=== PATIENT | female | born 1940 | race Caucasian/White ===

== ENCOUNTER 2017-01-11 10:25 | Emergency (ER) | payer MEDICARE, OTHER ==
[2016-08-18 13:11] VITALS: BMI 21.5
[~2017-01-11 10:25] MED LIST: ACETAMINOPHEN500 M1 PO; ATENOLOL25 MG NG; CEFTIN500 MG PO; COMPAZINE10 MG PO; GAVISCON E1 TAB.CHEW PO; HYDROCODON-ACE1 EAC7 PO; LOPERAMIDE HCL2 MG PO; NORCO 10/325 TA1 TA1 PO; NORVASC5 MG PO; PROTONIX40 MG PO; PROZAC20 MG PO; REMERON15 MG PO; TENORMIN50 MG; VIT D-3; VITAMIN B-1000 MCG/M IM; XANAX1 MG PO; ZOLOFT50 MG PO
[2017-01-11 11:34] LABS: BASOPHILS 0.1 % (0.0-2.0); EOSINOPHILS 0.3 % (0-7); HEMATOCRIT 39.5 % (36.0-48.0); HEMOGLOBIN 12.4 g/dL (12-16); IMMATURE GRANULOCYTES 0.3 % (0-5); LYMPHOCYTES 12.9 % (15-50); MCH 31.2 pg (26.0-34.0); MCHC 31.4 g/dL (31.0-37.0); MCV 99.5 fL (80.0-100.0); MEAN PLATELET VOLUME 11.1 fL (7.4-10.4); MONOCYTES 6.4 % (2-11); RBC 3.97 10x6/uL (4.00-5.40); RDW 13.5 % (11.5-14.5); WBC 11.3 10x3/uL (4.8-10.8)
[2017-01-11 11:34] LABS: APPEARANCE HAZY (CLEAR); BILIRUBIN NEGATIVE (NEGATIVE); COLOR STRAW (YELLOW); GLUCOSE NEGATIVE (NEGATIVE); KETONE NEGATIVE (NEGATIVE); LEUKOCYTE ESTERASE NEGATIVE (NEGATIVE); NITRITE NEGATIVE (NEGATIVE); PROTEIN NEGATIVE (NEGATIVE); SPECIFIC GRAVITY 1.005 (1.005-1.020); UROBILINOGEN NORMAL (NORMAL)
[2017-01-11 11:35] LABS: EPITHELIAL CELLS RARE /hpf (0-5); RED CELLS - URINE OCC /hpf (0-5); WHITE CELLS - URINE 0-5 /hpf (0-5)
[2017-01-11 11:36] LABS: PLATELET COUNT 166 10x3/uL (130-400)
[2017-01-11 11:51] LABS: ALBUMIN 3.4 g/dL (3.4-5.0); BILIRUBIN - TOTAL 0.4 mg/dL (0.2-1.3); CALCIUM 9.1 mg/dL (8.5-10.1); CARBON DIOXIDE 24.7 mmol/L (21.0-32.0); POTASSIUM - SERUM 3.7 mmol/L (3.5-5.1); PROTEIN - SERUM 7.9 g/dL (6.4-8.2)
== END 2017-01-11 14:17 | disposition home or self-care (01) ==
LOC: D.ER 10:25
PROVIDERS: Emergency Medicine
DX: R10.13 Epigastric pain (principal); R11.10 Vomiting, unspecified; I25.10 Atherosclerotic heart disease of native coronary artery without angina pectoris; F32.9 Major depressive disorder, single episode, unspecified

== ENCOUNTER → 2017-02-12 10:22 | Outpatient (CLI) | payer MEDICARE, OTHER ==
[2016-08-18 13:11] VITALS: BMI 21.5
== END | disposition home or self-care (01) ==
LOC: D.RAD 02-04 09:30
DX: R13.10 Dysphagia, unspecified (principal); R11.0 Nausea

== ENCOUNTER → 2017-02-19 11:15 | Outpatient (CLI) | payer MEDICARE, OTHER ==
[2016-08-18 13:11] VITALS: BMI 21.5
== END | disposition home or self-care (01) ==
LOC: D.NM 02-12 08:30
DX: R13.10 Dysphagia, unspecified (principal); R11.0 Nausea

== ENCOUNTER 2017-09-29 11:36 | Day surgery (SDC) | payer MEDICARE, OTHER ==
[~2017-09-29] VITALS: Ht 152.4 cm; Wt 55.0 kg
[2017-09-29 12:17] LABS: HEMATOCRIT 39.4 % (36.0-48.0); HEMOGLOBIN 12.4 g/dL (12-16); MCH 31.5 pg (26.0-34.0); MCHC 31.5 g/dL (31.0-37.0); MEAN PLATELET VOLUME 9.8 fL (7.4-10.4); RBC 3.94 10x6/uL (4.00-5.40); RDW 13.7 % (11.5-14.5); WBC 9.6 10x3/uL (4.8-10.8)
[2017-09-29 13:13] VITALS: BP 146/65; Ht 152.4 cm; Wt 55.0 kg
--- NOTE | 2017-09-29 14:11 | NUR ---
DILATED ESOPHAGUS TO 18.
--- NOTE | 2017-09-29 15:28 | NUR ---
1525--IV DC'D, PT UP TO DRESS AT THIS TIME. URBANO GARCIA
--- NOTE | 2017-09-29 16:14 | NUR ---
1535--DISCHARGE INSTRUCTIONS GIVEN, PT VERBALIZES UNDERSTANDING. PT OFF UNIT VIA KAREN. URBANO GARCIA
--- NOTE | 2017-10-05 11:02 | OP ---
PATIENT NAME: AMANUEL GUTIERREZ MEDICAL RECORD: [id number] :38 LOCATION:[facility] ADMISSION DATE: SURGEON: ROB WALLACE DO DATE OF OPERATION: 09/29/2017 PROCEDURE: EGD with balloon dilation of the esophagus. INDICATION FOR PROCEDURE: History of Schatzki ring and nausea. SCOPE: Olympus video gastroscope. MEDICATIONS: Propofol 100 mg IV per anesthesia. ESTIMATED BLOOD LOSS: None. COMPLICATIONS: None. FINDINGS: Informed consent was given. The patient was made comfortable with the above medication. After reaching an adequate level of sedation by slow IV push, the patient was placed on her left side. The gastroscope was then advanced under direct visualization through the mouth to the jejunum. The upper, middle, and lower thirds of the esophagus appeared normal other than a mild ring located in the distal third of GE junction. There was a hiatal hernia at the GE junction involving the cardia visible from both the proximal and the distal sites. Retroflexion was performed in the stomach confirming this. The stomach appeared normal without ulcers or erosions. There was evidence of a prior intervention, which appears to be a partial gastrectomy with a gastrojejunostomy formation. The jejunum was traversed for approximately 20 cm without any abnormalities visualized. The endoscope was then pulled back up into the stomach and a CRE balloon was placed through the working channel. The ring that was previously visualized was dilated starting with a 16-mm dilation and progressing up to 18 mm successfully. The scope was then withdrawn from the patient. The patient tolerated the procedure well and there were no complications. IMPRESSION: 1. Esophageal ring in the distal esophagus, consistent with Schatzki ring, dilated up to 18 mm. 2. Hiatal hernia. 3. Prior intervention involving the stomach with a gastrojejunostomy formation. PLAN AND RECOMMENDATIONS: 1. Discharge home when recovery parameters are met. 2. Continue current diet. 3. Continue current medications. 4. Follow up in GI clinic as scheduled. 5. Repeat EGD as needed for symptoms of dysphagia. TRANSINT:[id number] Voice Confirmation ID: [id number] DOCUMENT ID: [id number] OPERATIVE REPORT [id number] AMANUEL GUTIERREZ ROB WALLACE DO at 9413 CC: [id number] DICTATION DATE: 09/29/17 1423 CHAIR TRIMMER: 09/29/17 1436 DEP SDC 09/29/17 [facility] [address] [place] [place] [address]
== END 2017-09-29 15:35 | disposition home or self-care (01) ==
LOC: D.OPS 11:36
PROVIDERS: Anesthesiology
DX: K22.2 Esophageal obstruction (principal); K44.9 Diaphragmatic hernia without obstruction or gangrene; Z90.3 Acquired absence of stomach [part of]; Z01.812 Encounter for preprocedural laboratory examination

== ENCOUNTER → 2018-04-05 10:46 | Outpatient (CLI) | payer MEDICARE, OTHER ==
[2017-09-29 13:13] VITALS: BMI 23.6
[2018-04-05 11:49] LABS: ALBUMIN 3.3 g/dL (3.4-5.0); BILIRUBIN - DIRECT 0.07 mg/dL (0.00-0.30); BILIRUBIN - INDIRECT 0.43 mg/dL (0.00-1.00); BILIRUBIN - TOTAL 0.5 mg/dL (0.2-1.3); PROTEIN - SERUM 8.1 g/dL (6.4-8.2)
== END | disposition home or self-care (01) ==
LOC: D.LAB 10:46 → D.CT 11:30
PROVIDERS: Internal Medicine Gastroenterology
DX: R93.8 Abnormal findings on diagnostic imaging of other specified body structures (principal); R10.32 Left lower quadrant pain; R10.31 Right lower quadrant pain

== ENCOUNTER 2018-04-29 11:28 | Inpatient (IN) | payer MEDICARE, OTHER ==
[~2018-04-29] VITALS: Ht 152.4 cm; Wt 60.8 kg
--- NOTE | ~2018-04-29 | DS ---
PATIENT:AMANUEL GUTIERREZ :38 MEDICAL RECORD: [id number] DISCHARGE SUMMARY ADMISSION DATE: 04/29/18 DISCHARGE DATE: 04/30/18 DATE OF ADMISSION: 04/29/2018. DATE OF DISCHARGE: 04/30/2018. ADMISSION DIAGNOSES: Abdominal pain, history of diverticulitis, questionable CT from hospitalization at [facility] 3 days ago. DISCHARGE DIAGNOSES: Abdominal pain, recurrent and severe anxiety. HOSPITAL COURSE: The patient had an uneventful hospital course, was admitted to the Emergency Room, unassigned medicine. Reviewed CT from her recent hospitalization at [facility], which showed some possible inflammation around the pancreatic head. Subsequent MRCP and MRI was obtained here, which was completely normal, consulted gastroenterology. No abnormalities. No significant pathology. No intervention required at this time. The patient is anxious to go home. She is tolerating diet. The patient is discharged to home in stable condition. Labs have been unremarkable. She will follow up with her primary care physician, Dr. Ken next week. She will follow up with GI as an outpatient if indicated. DISCHARGE MEDICATIONS: Per med rec. PHYSICAL EXAMINATION: VITAL SIGNS ON DISCHARGE: Temperature 99.1, blood pressure 154/67, heart rate 87, respirations 16, O2 sats 96% on room air. GENERAL: Alert and oriented, in no acute distress. LABORATORY DATA: On discharge, potassium 3.5. CBC: White count 9.4, hemoglobin 11.9, hematocrit 36.6, platelets 265. Chemistry unremarkable. DISPOSITION: Again, the patient is anxious to go home. She is discharged in stable and improved condition. TRANSINT:[id number] Voice Confirmation ID: [id number] DOCUMENT ID: [id number] REYMUNDO YIN DO at 1350 CC: [id number] DICTATION DATE: 04/30/18 1221 PLASTIC OUTFITTER: 04/30/18 1239 DIS IN 04/30/18 [id number] [place] [address]
[2018-04-29 11:51] LABS: APPEARANCE CLEAR (CLEAR); BILIRUBIN NEGATIVE (NEGATIVE); COLOR YELLOW (YELLOW); GLUCOSE NEGATIVE (NEGATIVE); KETONE NEGATIVE (NEGATIVE); NITRITE NEGATIVE (NEGATIVE); PROTEIN NEGATIVE (NEGATIVE); SPECIFIC GRAVITY 1.005 (1.005-1.020); UROBILINOGEN NORMAL (NORMAL)
[2018-04-29 12:46] LABS: ALBUMIN 3.1 g/dL (3.4-5.0); ANION GAP 14.7 mmol/L (8-16); BILIRUBIN - TOTAL 0.36 mg/dL (0.2-1.3); CALCIUM 9.1 mg/dL (8.5-10.1); CARBON DIOXIDE 24.3 mmol/L (21.0-32.0); PROTEIN - SERUM 7.3 g/dL (6.4-8.2)
[2018-04-29 12:54] LABS: BASOPHILS 0.3 % (0-2); EOSINOPHILS 1.3 % (0-7); HEMATOCRIT 33.7 % (36.0-48.0); IMMATURE GRANULOCYTES 0.3 % (0-5); LYMPHOCYTES 22.7 % (15-50); MCH 30.6 pg (26.0-34.0); MCHC 32.6 g/dL (31.0-37.0); MCV 93.9 fL (80.0-100.0); MEAN PLATELET VOLUME 12.1 fL (7.4-10.4); MONOCYTES 9.2 % (2-11); NEUTROPHILS 66.2 % (40-80); RBC 3.59 10x6/uL (4.00-5.40); RDW 14.4 % (11.5-14.5); WBC 6.8 10x3/uL (4.8-10.8)
[2018-04-29 13:00] LABS: PLATELET COUNT 123 10x3/uL (130-400)
[2018-04-29 16:31] VITALS: BP 164/89
[2018-04-29 17:31] VITALS: BP 154/70
[2018-04-29 19:51] VITALS: BP 178/65
[2018-04-29 20:37] VITALS: BP 178/65; BMI 26.2
[2018-04-30 04:46] VITALS: BP 179/69
[2018-04-30 04:59] LABS: BASOPHILS 0.3 % (0-2); EOSINOPHILS 0.6 % (0-7); HEMATOCRIT 36.6 % (36.0-48.0); HEMOGLOBIN 11.9 g/dL (12-16); IMMATURE GRANULOCYTES 0.2 % (0-5); LYMPHOCYTES 13.1 % (15-50); MCH 30.7 pg (26.0-34.0); MCHC 32.5 g/dL (31.0-37.0); MCV 94.6 fL (80.0-100.0); MEAN PLATELET VOLUME 10.4 fL (7.4-10.4); MONOCYTES 8.6 % (2-11); NEUTROPHILS 77.2 % (40-80); RBC 3.87 10x6/uL (4.00-5.40); RDW 14.2 % (11.5-14.5)
[2018-04-30 05:09] LABS: PLATELET COUNT 265 10x3/uL (130-400); WBC 9.4 10x3/uL (4.8-10.8)
[2018-04-30 05:12] LABS: ALBUMIN 3.1 g/dL (3.4-5.0); ANION GAP 13.6 mmol/L (8-16); BILIRUBIN - TOTAL 0.36 mg/dL (0.2-1.3); C-REACTIVE PROTEIN 0.7 mg/dL (0.0-0.9); CALCIUM 8.9 mg/dL (8.5-10.1); CARBON DIOXIDE 24.8 mmol/L (21.0-32.0); CREATININE - SERUM 1.1 mg/dL (0.6-1.3); POTASSIUM - SERUM 3.4 mmol/L (3.5-5.1); PROTEIN - SERUM 7.7 g/dL (6.4-8.2)
[2018-04-30 07:53] VITALS: BP 154/67
[2018-04-30 10:03] VITALS: BMI 26.1
[2018-04-30 11:47] VITALS: Ht 152.4 cm; Wt 60.8 kg
[2018-04-30 12:28] VITALS: BP 183/71
== END 2018-04-30 13:00 | disposition home or self-care (01) | DRG 392 ==
LOC: D.ER 11:28 → D.MS 17:23
PROVIDERS: Emergency Medicine; Family Medicine
DX: R10.9 Unspecified abdominal pain (principal); D64.9 Anemia, unspecified; I10 Essential (primary) hypertension; F41.9 Anxiety disorder, unspecified